=== PATIENT | female | born 1975 | race Caucasian/White ===

== ENCOUNTER → 2023-12-24 09:08 | Outpatient (REF) | payer BC, SELFPAY ==
[2023-12-24 10:55] LABS: D-Dimer < 0.27 ug/mlFEU (0.00-0.50)
== END ==
LOC: RAD 09:08
PROVIDERS: ATTENDING PHYSICIAN Physician Assistant Medical
DX: R07.9 Chest pain, unspecified (principal); R06.02 Shortness of breath; J02.9 Acute pharyngitis, unspecified; Z20.828 Contact with and (suspected) exposure to other viral communicable diseases
CPT/HCPCS: 36415; 71111; 85379